=== PATIENT | female | born 1980 | race African-American/Black ===

== ENCOUNTER 2017-07-03 09:56 | Emergency (ER) | payer OTHER, SELFPAY ==
[2017-07-03 10:38] LABS: #Lymphocytes 1.1 thou/uL (1.20-3.40); #Monocytes 0.2 thou/uL (0.11-0.59); #Neutrophils 3.7 thou/uL (1.40-6.50); %Basophils 0.8 % (0.0-1.0); %Eosinophils 0.2 % (0.0-10.0); %Lymphocytes 21.1 % (21.0-51.0); %Monocytes 4.2 % (0.0-10.0); %Neutrophils 73.7 % (42.0-75.0); Hemoglobin 12.4 g/dL (12.0-16.0); Mean Corpuscular HGB CONC 32.4 g/dL (32.0-36.0); Mean Corpuscular Hemoglobin 28.8 pg (27.0-31.0); Mean Corpuscular Volume 88.9 fl (81.0-99.0); Mean Platelet Volume 7.4 fL (7.4-10.4); Platelet Count 369 thou/uL (130-400); RBC Distribution Width 12.3 % (11.5-14.5)
[2017-07-03 10:58] LABS: ALT (SGPT) 10 U/L (8-55); AST (SGOT) 15 U/L (5-34); Albumin 4.3 g/dL (3.5-5.0); Alkaline Phosphatase 84 U/L (40-150); Anion Gap 15 mmol/L (10-20); BUN (Urea Nitrogen) 10 mg/dL (7.0-18.7); Bilirubin, Total 0.6 mg/dL (0.2-1.2); Calc. Creatinine Clearance 0 mL/min (70-130); Calcium 10.3 mg/dL (7.8-10.44); Carbon Dioxide 22 mmol/L (22-29); Chloride 101 mmol/L (98-107); Estimated GFR-MDRD 78; Globulin 4.1 g/dL (2.4-3.5); Glucose 113 mg/dL (70-105); Lipase 9 U/L (8-78); Potassium 3.7 mmol/L (3.5-5.1); Protein, Total 8.4 g/dL (6.0-8.3); Sodium 134 mmol/L (136-145)
[2017-07-03] MEDS ORDERED: Ondansetron ODT 4 MG TAB ONE (13:22)
[2017-07-03] MEDS ORDERED: Promethazine HCl 25 MG/ML VIAL ONE (15:18)
[2017-07-03 15:25] LABS: Bilirubin Negative (Negative); Blood, Urine Negative (Negative); Clarity CLEAR (Clear); Glucose, Urine (Dipstick) Negative (Negative); Leukocyte Small (Negative); Nitrite Negative (Negative); Protein, Urine (Dipstick) 100 mg/dL (Neg-Trace); Specific Gravity, Urine 1.024 (1.002-1.036); Urobilinogen 0.2 mg/dL (0.2-1.0); pH, Urine 8.5 (5.0-9.0)
[2017-07-03 15:26] LABS: Pregnancy Test - Urine (BHCG) Negative (Negative); Pregu Control Background? CLEAR/WHITE (CLR/WHITE); Pregu Control Bar Appear? YES (CONTROL BAR); Specific Gravity 1.024 (1.002-1.036)
[2017-07-03 15:28] LABS: Bacteria/HPF None Seen HPF (None Seen); Hyaline Casts/LPF 0-3 HYALINE CAST LPF (0-3 Hyaline); Pathc Cast-AUWi Flag 0.14 (0-2.49)
[2017-07-03 15:38] LABS: Renal Epithelial None Seen HPF (0-3); Transitional Epithelial NONE SEEN HPF (0-3)
== END 2017-07-03 18:12 | disposition home or self-care (01) ==
LOC: ERS 09:56
DX: R11.2 Nausea with vomiting, unspecified (principal); F41.9 Anxiety disorder, unspecified; F32.9 Major depressive disorder, single episode, unspecified; F17.200 Nicotine dependence, unspecified, uncomplicated; Z79.899 Other long term (current) drug therapy
CPT/HCPCS: 36415; 80053; 81003; 81015; 81025; 83605; 83690; 85025; 87086; 96361; 96365; J2550; Q0162

== ENCOUNTER 2018-05-31 11:30 | Day surgery (SDC) | payer OTHER, SELFPAY ==
[2018-05-31 12:26] VITALS: BMI 29.7
[2018-05-31 12:42] VITALS: BP 100/58; TEMP 98.2
--- NOTE | 2018-05-31 13:05 | PDOC.LDHP ---
Labor and Delivery H&P Chief complaint: loss of fluid HPI: Ms. Rodarte presents for LOF she states that after her PNC visit on thursday she experienced a wet sensation down her leg, she called clinic and they were closed. Over the weekend she experienced intermittent contractions and one other episode of leaking fluid. She reports that she was told she was measuring small for dates on thursday with her fundus at 33cm. She called in to clinic today and was told to come to the hospital to be evaluated. She reports feeling baby move and is taking her vitamins. She denies vaginal bleeding, dysuria, consistent ctx, major LOF, abdominal pain, headache, or SOB. 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), tobacco abuse, hidranitis suppurtiva Current medications: pre-chantelle vitamins Previous surgical history: other (skin graft) Allergies/Adverse Reactions: Allergies Allergy/AdvReac Type Severity Reaction Status Date / Time sulfamethoxazole Allergy Hives Verified 05/31/18 12:24 [From Bactrim] trimethoprim [From Bactrim] Allergy Hives Verified 05/31/18 12:24 Social history: none (reported tobacco use earlier in ) - Physical Exam Vital signs reviewed and normal: yes General: NAD, resting Heart: RRR Lungs: CTAB Abdomen: NTTP Extremeties: no edema FHT: variability present (baseline 140, accels, no decels) - OB Labs Blood type: O RH: positive Antibody Screen: negative HIV: negative RPR: negative HEPSAg: negative 1 hour GCT: negative GBS: unknown Urine drug screen: not done Rubella: immune Additional Labs: pap w/ cotest neg, GC neg - Assessment R/O PROM - Plan -: - sterile spec negative for pooling, post tussive fluid. moderate amount of milky white fluid present, non foul smelling - PO hydration for mild uterine irritability - BPP 8/8, TOMMY>12, negative amnisure - growth c/w dates - DC home after 4-6 monitoring of FHTs, if concerning consider admit for induction of labor - labor precautions, US scheduled for 06/03/18 Addendum - Attending - Attending Attestation Date/Time: 06/01/18 6340 I personally evaluated the patient and discussed the management with Dr. Moreno. I agree with the History, Examination, Assessment and Plan documented above with any addition or exceptions noted below. Very subtle late on initial NST, which was reactive. No decels despite prolonged monitoring, which revealed a reactive strip. BPP 8/8 and 41% on growth. D/c home with strict return precautions. She has follow up tomorrow and may have APT later this week. Likely induction @ 39w.
[2018-05-31 13:51] LABS: Amnisure Test No Membranes Rupture (No Rupture)
[2018-05-31 13:52] LABS: Amnisure Internal Control QC ACCEPTABLE (ACCEPTABLE)
--- NOTE | 2018-05-31 15:34 | ULT ---
ULTRASOUND BIOPHYSICAL PROFILE: HISTORY: 38-year-old female in third trimester of with heart decelerations. FINDINGS: breathin tone: 2 movement: 2 Amniotic fluid volume: 2 IMPRESSION: Normal biophysical profile score of 8/8, excluding the non-stress test. jn [] POS: [facility]
--- NOTE | 2018-05-31 15:39 | ULT ---
ULTRASOUND OBSTETRICAL COMPLETE: DATE: 05/31/18 HISTORY: 38-year-old female in third trimester of with heart decelerations. Evaluate mini wt. FINDINGS: number: Clarke. lie: Cephalic. Maternal cervix: Obscured. Placenta: Right-fundal. No placenta previa. Amniotic fluid volume: TOMMY 12.5 cm. heart rate: 144 bpm. The following anatomy is visualized, with no evidence of anomalies: Bladder, bilateral kidneys, three vessel cord, four chamber heart, stomach, and cord insertion. The rest of the anatomy is not well visualized due to third trimester of . biometry: Head circumference (HC): 33.0 cm 37w 4d Biparietal diameter (BPD): 9.0 cm 36w 3d Abdominal circumference (AC): 32.7 cm 36w 4d Femur length (FL): 7.5 cm 38w 2d Average ultrasound age (AUA): 37w 2d Estimated date of delivery (HENRIQUE): 06/19/2018. Last menstrual period (LMP): 09/08/2017. Gestational age by LMP: 37w 6d Estimated weight (EFW): 3124 g +/- 462 g (6 lb 14 oz +/- 16 oz) IMPRESSION: 1. Live third trimester intrauterine gestation. 2. Estimated gestational age of 37 weeks, 2 days. 3. Cephalic lie. TAMICA Bennett POS: [facility]
== END 2018-05-31 17:35 | disposition home or self-care (01) ==
LOC: L&D/OP 11:30
PROVIDERS: ATTEND Emergency Medicine
DX: O99.89 Other specified diseases and conditions complicating pregnancy, childbirth and the puerperium (principal); N89.8 Other specified noninflammatory disorders of vagina; Z3A.37 37 weeks gestation of pregnancy; Z88.2 Allergy status to sulfonamides
CPT/HCPCS: 76805; 76819; 84112; 99283

== ENCOUNTER 2018-06-08 22:00 | Inpatient (IN) | payer OTHER ==
[~2018-06-08 22:00] MED LIST: Bupivacaine/Epinephrine 0.25% 30 ML VIAL ONE
[2018-06-08 22:30] VITALS: BMI 29.6
[2018-06-08] MEDS ORDERED: Promethazine HCl 25 MG/ML VIAL IM PRN (23:08)
[2018-06-08] MEDS ORDERED: Ondansetron PF 4 MG/2 ML Vial IVP PRN (23:08)
[2018-06-08] MEDS ORDERED: Lidocaine 1% (PF) 30 ML VIAL SC PRN (23:12)
--- NOTE | 2018-06-08 23:14 | PDOC.FPROB ---
FMR OB H&P: HPI - History of Present Illness Chief Complaint: IOL History of Present Illness: This is a 38 yo F @ 39wks by 9.3wk US who presents for IOL. Patient has had a complicated by AMA, 1st trimester tobacco use, iron deficiency anemia, and GBS positive status. The patient endorses + FM and irregular CTX. Patient denies LOF, vag bleeding, headache, vision changes or LE edema. Patient desires epidural with labor. She has no issues or concerns at this time. Primary Care Physician: Sabrina Kaminski FMR OB H&P: Current - Care : 5 Para: [id number] Gestational age: 39 Due date: 06/15/2018 Dating Criteria: 9.3w US Total weight gain: 43lbs - OB Labs Blood type: O RH: positive Antibody Screen: negative HIV: negative RPR: negative HepBsAg: negative Rubella: immune Gonorrhea: negative Chlamydia: negative 1 hour gtt: 112 GBS: positive H&H: 8.5/24.2 Platelets: 276 - First Trimester Ultrasound First trimester: US date: 11/13/17 Fetus - Location: IUP - Cardiac Motion: YES - FHR: 175 - Anomalies: None Measurements - Secor Rump Length (mm): 2.7 Dating - Gestational Age 9w3d - HENRIQUE by LMP 06/04/18, HENRIQUE by US 06/15/17 - Anatomy Survey Anatomy survey: Date of US 01/29/18 2 21w2d EFW 410g BPD: 5.11cm HC 18.97cm AC 15.43cm FL 3.75cm No abnormalities placenta location - posterior position: cephalic normal 3 vessel cord normal TOMMY FHR: 137bpm FMR OB H&P: History - Past Medical History PMH: Mitral regurgitation, iron deficiency anemia - OB History OB History: 09/10/15 - 39wks viable F, , epidural 03/20/12 - 39 wks viable F, , epidural 07/21/06 - 40 wks viable M, 12/19/96 - 40 wks viable M, - Child at aged 19 by suicide - second child has CP - very traumatic experience. Delivery at [facility]. Patient feels she was managed poorly. 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 Repeat in 3-5 years Menarche 12 years old, duration 7 days, regular frequency - Surgical History Sx History: Skin graft procedure after "spider bite" 2017 - Social History Social History: 1T tobacco use, smoked 5 cig a day, no longer using tobacco denies drug or alcohol use - Family History Family History: 2nd child w/ CP FMR OB H&P: Medications - Current Home Medications: Medication Instructions Recorded Confirmed Type Iron 18 mg PO DAILY 05/31/18 06/08/18 History Vit 108/Iron/Folic AC 1 tablet PO DAILY 05/31/18 06/08/18 History [ One Tablet] Allergies/Adverse Reactions: Allergies Allergy/AdvReac Type Severity Reaction Status Date / Time sulfamethoxazole Allergy Hives Verified 06/08/18 22:24 [From Bactrim] trimethoprim [From Bactrim] Allergy Hives Verified 06/08/18 22:24 FMR OB H&P: ROS - Review of Systems General: denies: fever/chills, weight/appetite/sleep changes, night sweats, fatigue Eyes: denies: vision changes, double vision ENT: denies: nasal congestion, rhinorrhea, sinus pain/pressure, sore throat Cardiovascular: denies: chest pain, palpitation, edema Respiratory: denies: cough, congestion, shortness of breath Gastrointestinal: denies: abdominal pain, nausea, vomiting, diarrhea Genitourinary (Female): denies: dysuria Musculoskeletal: denies: swelling Integumentary: denies: itching, rash FMR OB H&P: Vital Signs - Maternal Vital signs: Vital Signs - First Documented Temp Pulse Resp BP 97.7 F 78 16 97/54 L 06/08/18 22:24 06/08/18 22:24 06/08/18 22:24 06/08/18 22:24 - Heart Tones Baseline: 130 Variability: moderate Deceleration: absent Category: category 1 [place] contractions every: none FMR OB H&P: Physical Exam - Physical Exam General: NAD, awake, alert and oriented HEENT: normocephalic and atraumatic, PERRLA, EOMI, MMM, grossly normal vision, grossly normal hearing, good dention Neck: supple, FROM, trachea midline Chest: non-tender to palpation Breast: symmetric, non-tender Heart: RRR, normal S1/S2, no murmurs/rubs/gallops, pulses present General: CTAB, no respiratory distress, good air movement, no wheezing, no retractions Abdomen: soft, gravid, non-tender, bowel sound present Musculoskeletal: normal gait and station, pulses present, FROM in all four extremities Neurological: no focal deficit Skin: no rash, good tugor, capillary refill <2 seconds Psychiatric: intact recent and remote memory - Pelvic Exam Vulva: normal hair distribution, no masses, no lesions, no discharge SVE: /-3 Weinberg score: 3 Membranes: intact Presentation: cephalic FMR OB H&P: A/P - Problem List (1) Supervision of normal IUP (intrauterine ) in multigravida Current Visit: Yes Status: Acute Code(s): Z34.80 - ENCOUNTER FOR SUPRVSN OF NORMAL , UNSP TRIMESTER (2) Advanced maternal age (AMA) in Current Visit: Yes Status: Acute Code(s): GMS8680 - (3) Iron deficiency Current Visit: Yes Status: Acute Code(s): E61.1 - IRON DEFICIENCY (4) LGSIL (low grade squamous intraepithelial dysplasia) Current Visit: Yes Status: Acute Code(s): ALI3458 - Disposition: This is a 38 yo @ 39wks presenting for IOL. IUP - Cervical check 3 @ 2330 - Cook's Balloon placed at 2345, will recheck in 1 hour and start pitocin if patient will tolerate - Will continue to monitor FHR and maternal VS - patient desires epidural - Will give IVF AMA - aware, no other issues with GBS + - Will begin Penicillin G Iron deficiency anemia - continue iron, CBC will be monitored Hidradenitis suppurativa - aware, no current flares Hx of LSIL - aware, plan is to repeat in 3-5 years Hx of child w/ CP - aware, will make sure to keep patient informed of all decision and involved throughout the process Hx of tobacco use - 1T use, not currently smoking Addendum - Attending - Attending Attestation Date/Time: 06/08/18 4101 I personally evaluated the patient and discussed the management with Dr. Mederos I agree with the History, Examination, Assessment and Plan documented above with any addition or exceptions noted below. 38 yo female at 39.0 wks by 9.3 wk sono here for elective IOL. R/B/A discussed with patient. Questions answered. Consents signed. Induction options discussed. Will proceed with Cook's Balloon. complicated by AMA, child with CP, GBS pos, Iron deficiency anemia, excessive maternal wt gain, 1T tobacco use, hidradenitis -- no flares VS reviewed. FHT cat 1 tracing. Intact. Cephalic. 7lbs. 2 cm. Balloon placed without complications. Continue to closely monitor. Repeat exam as needed or in 4 hours. Darcy
[2018-06-08] MEDS ORDERED: Penicillin G Potassium 5 MILL.UNITS in Sodium Chloride 0.9% 100 ML IVPB SCH (23:15)
[2018-06-08] MEDS ORDERED: Penicillin G Potassium 5 MILL.UNITS VIAL ONE (23:24)
[2018-06-08 23:26] LABS: Hemoglobin 10.1 g/dL (12.0-16.0); Mean Corpuscular HGB CONC 33.2 g/dL (32.0-36.0); Mean Corpuscular Hemoglobin 28.1 pg (27.0-31.0); Mean Corpuscular Volume 84.6 fL (78.0-98.0); Mean Platelet Volume 7.6 fL (7.4-10.4); Platelet Count 294 thou/uL (130-400); RBC Distribution Width 12.3 % (11.5-14.5); Red Blood Cell (RBC) Count 3.59 mill/uL (4.20-5.40); White Blood Cell (WBC) Count 9.5 thou/uL (4.8-10.8)
[2018-06-08] MEDS: Lactated Ringer's 1,000 ML IV SCH (23:42)
[2018-06-09 00:04] LABS: HBSAg Index 0.42 S/CO (0-0.99); Hep B Surf Ag Non-Reactive S/CO (NonReactive); Syphilis Antibody Nonreactive (Nonreactive); Syphilis Antibody Index 0.04 S/CO (<1.00 Non-Reactive)
[2018-06-09] MEDS ORDERED: Fentanyl 4 mcg/Bup 0.1% Cadd 100 ML ONE ×3 (01:09→16:16)
--- NOTE | 2018-06-09 01:36 | PDOC.LDPN ---
Labor & Delivery Progress Note - Subjective Subjective: comfortable, painful contractions, no concerns - Objective Vital signs reviewed and normal: yes General: NAD, resting, breathing through contractions Uterine fundus: non tender Dilation: 2 Effacement: 50% Station: -3 FHT: category 1 [place] contractions every: every 1-2 min Resuscitative measures: maternal IV fluids - Assessment (1) Supervision of normal IUP (intrauterine ) in multigravida Code(s): Z34.80 - ENCOUNTER FOR SUPRVSN OF NORMAL , UNSP TRIMESTER Current Visit: Yes Status: Acute (2) Advanced maternal age (AMA) in Code(s): HIA6194 - Current Visit: Yes Status: Acute (3) Iron deficiency Code(s): E61.1 - IRON DEFICIENCY Current Visit: Yes Status: Acute (4) LGSIL (low grade squamous intraepithelial dysplasia) Code(s): [id number] - Current Visit: Yes Status: Acute Plan: continue plan of care -: This is a 38 yo @ 39wks presenting for IOL. IUP - Cervical check @ 2330, balloon checked at [address]; Will recheck in 4 hours - Cook's Balloon placed at 2345 - Patient CTX every 1-2 min, will hold off on pit at this time - Epidural being placed at this time (0140) - Will continue to monitor FHR and maternal VS - Continue IVF AMA - aware, no other issues with GBS + - Pen G given X 1 Iron deficiency anemia - continue iron, CBC will be monitored Hidradenitis suppurativa - aware, no current flares Hx of LSIL - aware, plan is to repeat in 3-5 years Hx of child w/ CP - aware, will make sure to keep patient informed of all decision and involved throughout the process Hx of tobacco use - 1T use, not currently smoking Addendum - Attending - Attending Attestation Date/Time: 06/09/18 3263 I personally evaluated the patient and discussed the management with Dr. Mederos I agree with the History, Examination, Assessment and Plan documented above with any addition or exceptions noted below. 38 yo female at 39.1 wks by 9.3 wk sono here for elective IOL. complicated by AMA, child with CP, GBS pos, Iron deficiency anemia, excessive maternal wt gain, 1T tobacco use, hidradenitis -- no flares VS reviewed. FHT cat 1 tracing. Intact. Cephalic. 7lbs. 2 cm. [address]oon still in place. Ctx q 5 mins Continue to closely monitor. Repeat exam as needed or in 4 hours. Darcy
[2018-06-09] MEDS ORDERED: Naloxone HCl 0.4 mg/ml Vial IVP PRN ×4 (01:49→20:57)
[2018-06-09] MEDS ORDERED: Lactated Ringer's 500 ML IV PRN (01:49)
[2018-06-09] MEDS ORDERED: Eucerin (Mineral Oil/Petrolatum,White) 30 gm Jar TOP PRN (01:49)
[2018-06-09] MEDS ORDERED: ePHEDrine/0.9% NaCl/PF SYRINGE 50 mg/10 ml SLOW IVP PRN (01:49)
[2018-06-09] MEDS ORDERED: Ondansetron PF 4 MG/2 ML Vial IVP PRN ×2 (01:49→20:57)
[2018-06-09] MEDS ORDERED: Promethazine HCl 25 MG/ML VIAL IM PRN ×2 (01:49→20:57)
[2018-06-09] MEDS ORDERED: Communication Order-Pharmacy FS SCH ×2 (02:00→21:00)
[2018-06-09] MEDS ORDERED: Fentanyl 4 mcg/Bupivacaine 0.1% Cassette 100 ML EPIDURAL SCH (02:00)
[2018-06-09] MEDS: NS w/ Oxytocin 10 units 500 ML IV SCH (03:43)
[2018-06-09] MEDS: Penicillin G 2.5 MILL.units 2.5 MILL.UNITS in Premix Bag 1 BAG IVPB SCH ×5 (03:43→22:22)
--- NOTE | 2018-06-09 04:19 | PDOC.LDPN ---
Labor & Delivery Progress Note - Subjective Subjective: comfortable, no concerns - Objective Vital signs reviewed and normal: yes General: NAD, resting, breathing through contractions Uterine fundus: non tender Dilation: 4 Effacement: 50% Station: -2 FHT: category 1 [place] contractions every: every 5-6 min Other exam findings: FHR 130 Resuscitative measures: maternal IV fluids - Assessment (1) Supervision of normal IUP (intrauterine ) in multigravida Code(s): Z34.80 - ENCOUNTER FOR SUPRVSN OF NORMAL , UNSP TRIMESTER Current Visit: Yes Status: Acute (2) Advanced maternal age (AMA) in Code(s): [id number] - Current Visit: Yes Status: Acute (3) Iron deficiency Code(s): E61.1 - IRON DEFICIENCY Current Visit: Yes Status: Acute (4) LGSIL (low grade squamous intraepithelial dysplasia) Code(s): [id number] - Current Visit: Yes Status: Acute Plan: continue plan of care, pitocin for augmentation -: This is a 38 yo @ 39wks presenting for IOL. IUP - Cervical check /-2 @ 0345, balloon fell out - Patient CTX every 5-6min, will start pitocin (around 0400) - Epidural placed at 0140; patient comfortable in bed - Will continue to monitor FHR and maternal VS - FHR - mod variability, 130, no decels - Continue IVF - Continue current management AMA - aware, no other issues with GBS + - Pen G given X 1 Iron deficiency anemia - continue iron, CBC will be monitored Hidradenitis suppurativa - aware, no current flares Hx of LSIL - aware, plan is to repeat in 3-5 years Hx of child w/ CP - aware, will make sure to keep patient informed of all decision and involved throughout the process Hx of tobacco use - 1T use, not currently smoking Addendum - Attending - Attending Attestation Date/Time: 06/09/18 8351 I personally evaluated the patient and discussed the management with Dr. Mederos I agree with the History, Examination, Assessment and Plan documented above with any addition or exceptions noted below. 38 yo female at 39.1 wks by 9.3 wk sono here for elective IOL. complicated by AMA, child with CP, GBS pos, Iron deficiency anemia, excessive maternal wt gain, 1T tobacco use, hidradenitis -- no flares VS reviewed. FHT cat 1 tracing. Cat 2 during sleep cycle. Intact. Cephalic. 7lbs. Now 4 cm. Balloon out at 0345. Ctx q 3 to 5 mins Continue to closely monitor. Discussed augmentation options. Would like to start pitocin. Darcy
[2018-06-09] MEDS: diphenhydrAMINE 50 MG/ML VIAL IVP PRN ×2 (05:01→09:03)
--- NOTE | 2018-06-09 06:59 | PDOC.LDPN ---
Labor & Delivery Progress Note - Subjective Subjective: comfortable - Objective Vital signs reviewed and normal: yes General: NAD, resting Uterine fundus: non tender Dilation: 5 Effacement: 50% Station: -2 FHT: category 2, acceleration absent, variability present [place] contractions every: 4-5 - Assessment (1) Advanced maternal age (AMA) in Code(s): [id number] - Current Visit: Yes Status: Acute (2) Iron deficiency Code(s): E61.1 - IRON DEFICIENCY Current Visit: Yes Status: Acute (3) LGSIL (low grade squamous intraepithelial dysplasia) Code(s): [id number] - Current Visit: Yes Status: Acute (4) Supervision of normal IUP (intrauterine ) in multigravida Code(s): Z34.80 - ENCOUNTER FOR SUPRVSN OF NORMAL , UNSP TRIMESTER Current Visit: Yes Status: Acute (5) Tobacco abuse Code(s): Z72.0 - TOBACCO USE Current Visit: No Status: Chronic -: This is a 38 yo @ 39.1wks presenting for elective IOL. IUP - Cervical check /-2 @ 0645, s/p balloon - Patient CTX every 4-5, on 2 of , will titrate up as tolerated - Epidural placed at 0140; patient comfortable in bed - Cat 2 strip, absent accels, good variability, no decels - will follow for now, consider AROM later in the morning AMA GBS + - Pen G x2 - first dose at 2315 on 06/08 Iron deficiency anemia -hgb 10.1 on admission Hidradenitis suppurativa - aware, no current flares Hx of LSIL - NILM, neg HPV this preg, repeat 3-5 years Hx of child w/ CP - aware, will make sure to keep patient informed of all decision and involved throughout the process Hx of tobacco use - 1T use, not currently smoking
[2018-06-09] MEDS: Lactated Ringer's 1,000 ML IV SCH ×2 (07:47→22:25)
--- NOTE | 2018-06-09 11:58 | PDOC.LDPN ---
Labor & Delivery Progress Note - Subjective Subjective: comfortable - Objective Vital signs reviewed and normal: yes General: NAD Uterine fundus: non tender Dilation: 5 Effacement: 50% Station: -1 FHT: category 2 (120s/minimal-mod/no accels/no decels) [place] contractions every: q3-4min -: This is a 38 yo @ 39.1wks presenting for elective IOL. sIUP, term - s/p balloon dilation - Patient with Cat II strip: 120/minimal-moderate/no accels/no decels-even with conservative measures: maternal repositioning, IVF bolus, juice PO, D5LR - Pit at 2, CTX q3-4min - Epidural in place - SVE: /-1 - After record review and conversation w/ patient it was decided that with no cervical change and Cat II strip that we would allow patient to rest, eat and spontaneously labor on her own. Recheck around 1600 and can considering restarting pit unless any new acute changes AMA -MD aware GBS + - Pen G x2 - first dose at 2315 on 06/08 Iron deficiency anemia -hgb 10.1 on admission Hidradenitis suppurativa - aware, no current flares Hx of LSIL - NILM, neg HPV this preg, repeat 3-5 years Hx of child w/ CP - aware, will make sure to keep patient informed of all decision and involved throughout the process Hx of tobacco use - 1T use, not currently smoking Addendum - Attending - Attending Attestation Date/Time: 06/10/18 1416 I personally evaluated the patient and discussed the management with Dr. Daugherty on 06/09/18. I agree with the History, Examination, Assessment and Plan documented above with any addition or exceptions noted below. Category 2 FHT's with minimal oxytocin. Pt. has been NPO for almost 24 hours. No medical urgency to deliver. Will hold Oxytocin for now, allow pt. to eat lunch and reevaluate in 4-6 hours for FHT's and dilation to determine active management further.
--- NOTE | 2018-06-09 16:22 | PDOC.LDPN ---
Labor & Delivery Progress Note - Subjective Subjective: comfortable, no concerns - Objective Vital signs reviewed and normal: yes General: NAD, resting Uterine fundus: non tender SVE: 6/60/0 Dilation: 60 Station: 0 FHT: category 1 [place] contractions every: uterine variability AROM: clear fluid - Assessment (1) Encounter for induction of labor Code(s): Z34.90 - ENCNTR FOR SUPRVSN OF NORMAL , UNSP, UNSP TRIMESTER Current Visit: Yes Status: Acute (2) Advanced maternal age (AMA) in Code(s): [id number] - Current Visit: Yes Status: Acute (3) Positive GBS test Code(s): B95.1 - STREPTOCOCCUS, GROUP B, CAUSING DISEASES CLASSD ELSWHR Current Visit: Yes Status: Acute Plan: continue plan of care -: 38 yo @ 39.1wks here for elective IOL. sIUP, term induction of labor - s/p balloon dilation and period of pit augmentation now s/p labor rest. - Epidural in place - SVE: 60/60/0 - patient s/p period of 6 hour rest off pitocin. She has made cervical change, AROM now with clear fluid and accels with scalp stim. -cont expectant mgmt AMA -MD aware GBS + - adequate ppx Iron deficiency anemia -hgb 10.1 on admission Hx of LSIL - NILM, neg HPV this preg, repeat 3-5 years Hx of child w/ CP - aware, will make sure to keep patient informed of all decision and involved throughout the process Hx of tobacco use - 1T use, not currently smoking
--- NOTE | 2018-06-09 16:24 | PDOC.EVN ---
Event Note - Event Note Event Note: Ms. Rodarte is feeling well. She is grateful for the opportunity to rest and eat earlier. Exam now shows normal maternal vitals and Cat I FHT tracing. Cervical exam is 6/60/0. This is a change from earlier today when she was 5/50/- 2. AROM reveals clear fluid. FHT accel noted with scalp stimulation. We will continue her current care with continuous FHT and epidural. In light of her change while off pitocin; her prior Cat II tracing on pitocin; and now AROM status, I hopeful she may progress without pitocin augmentation.
--- NOTE | 2018-06-09 20:24 | PDOC.LDPN ---
Addendum entered and electronically signed by Amy Mederos MD 06/09/18 20:43 : Prolonged Cat 2 strip throughout the day with intermittent cat 1 strip for short periods of time. Occasional variable decels - not persistent and protracted labor. Not able to tolerate pitocin or other augmentation. At most recent check, unable to stimulate fetus with FSE or digital stimulation. Maternal resuscitations measures started including O2, IVFs and position change which were ineffective. Due to RF related to AMA and previous hx of antepartum complications risk and benefits discussed with patient about expectant management vs operative delivery. All questions asked and answered. Patient agreed to proceed to operative delivery. Original Note: Labor & Delivery Progress Note - Subjective Subjective: comfortable - Objective Vital signs reviewed and normal: yes General: NAD, resting, breathing through contractions Dilation: 6 Effacement: 75% Station: 0 FHT: category 1, acceleration absent [place] contractions every: every 5-6 min AROM: clear fluid IUPC placed: yes FSE placed: yes Resuscitative measures: maternal oxygen, maternal IV fluids, maternal position change - Assessment (1) Supervision of normal IUP (intrauterine ) in multigravida Code(s): Z34.80 - ENCOUNTER FOR SUPRVSN OF NORMAL , UNSP TRIMESTER Current Visit: Yes Status: Acute (2) Advanced maternal age (AMA) in Code(s): SOW3615 - Current Visit: Yes Status: Acute (3) Iron deficiency Code(s): E61.1 - IRON DEFICIENCY Current Visit: Yes Status: Acute (4) LGSIL (low grade squamous intraepithelial dysplasia) Code(s): SOL0040 - Current Visit: Yes Status: Acute Plan: continue plan of care, pitocin for augmentation -: 38 yo @ 39.1wks here for elective IOL. sIUP, term induction of labor - s/p balloon dilation and period of pit augmentation now s/p labor rest. - Epidural in place - SVE: - patient s/p period of 6 hour rest off pitocin. AROM with clear fluid. Patient continues to make change. - IUPC and FSE placed @ 1999 - FHT: mod variability, no decels, FHR 120s. Will give fluid bolus and start D5LR, will continue to monitor closely. Patient started on O2. Will try different maternal positions to continue progression. -cont expectant mgmt AMA -MD aware GBS + - adequate ppx Iron deficiency anemia -hgb 10.1 on admission Hx of LSIL - NILM, neg HPV this preg, repeat 3-5 years Hx of child w/ CP - aware, will make sure to keep patient informed of all decision and involved throughout the process Hx of tobacco use - 1T use, not currently smoking Addendum - Attending - Attending Attestation Date/Time: 06/09/182024 I personally evaluated the patient and discussed the management with Dr. Mederos I agree with the History, Examination, Assessment and Plan documented above with any addition or exceptions noted below. 38 yo female at 39.1 wks by 9.3 wk sono here for elective IOL. complicated by AMA, child with CP, GBS pos, Iron deficiency anemia, excessive maternal wt gain, 1T tobacco use, hidradenitis -- no flares VS reviewed. FHT persistent cat 2. Short periods of moderate variblity meeting 6 bpm only. No accels. Occasional varible decel. AROM 1600. Cephalic. 7lbs. 6 cm. FSE and IUPC in place. Inadequate contractions. Unable to tolerate pitocin. Gave patient 20 minutes with resuscitative measures but fetus not responding. R/ B/A discussed. Questions answered. Consents reviewed. Patient agreed to proceed with delivery. Patient approved for RRS and will proceed. Consulted Laborist for case. Agreed with plan. Darcy
[2018-06-09] MEDS ORDERED: Lidocaine 2% 10 ML INJ ONE (20:54)
[2018-06-09] MEDS ORDERED: HYDROmorphone 2 MG/ML VIAL SLOW IVP PRN (20:56)
[2018-06-09] MEDS ORDERED: Meperidine HCl/PF 25 MG/ML VIAL SLOW IVP PRN (20:56)
[2018-06-09] MEDS ORDERED: L&D-Morphine 4 MG/ML VIAL SLOW IVP PRN (20:56)
[2018-06-09] MEDS ORDERED: Ondansetron HCl/PF 4 MG/2 ML Vial IVP PRN (20:56)
[2018-06-09] MEDS ORDERED: Ketorolac Tromethamine 30 MG/ML VIAL IVP PRN (20:57)
[2018-06-09] MEDS ORDERED: Promethazine HCl 25 MG SUPP PR PRN (20:57)
[2018-06-09] MEDS ORDERED: Hydrocerin (Eucerin) Cream 120 gm Jar TOP PRN (20:57)
[2018-06-09] MEDS ORDERED: diphenhydrAMINE 50 MG/ML VIAL IVP PRN (20:57)
[2018-06-09] MEDS ORDERED: Naloxone HCl 0.4 mg/ml Vial IV PRN (20:57)
[2018-06-09] MEDS ORDERED: Bicitra 30 ML UDCUP PO SCH (21:00)
[2018-06-09] MEDS ORDERED: Azithromycin 500 MG in Sodium Chloride 0.9% 250 ML 250 ML IVPB SCH (21:00)
[2018-06-09] MEDS ORDERED: CEFAZOLIN 2 GM in Premix Bag 1 BAG IVPB SCH (21:00)
[2018-06-09] MEDS ORDERED: Ketorolac Tromethamine 30 MG/ML VIAL IVP SCH (21:00)
[2018-06-09] MEDS ORDERED: Bisacodyl 10 MG SUPP PR PRN (21:27)
[2018-06-09] MEDS ORDERED: Milk Of Magnesia 30 ML UDCUP PO PRN (21:27)
[2018-06-09] MEDS ORDERED: Benzocaine/Menthol 20-0.5% 60 ML CAN TOP PRN (21:27)
[2018-06-09] MEDS: NS / Oxytocin 40 units/1000ml 1,000 ML IV PRN ×2 (21:30→22:46)
[2018-06-09] MEDS ORDERED: Misoprostol 200 MCG TAB RC SCH (21:45)
--- NOTE | 2018-06-09 21:54 | PDOC.OPDEL ---
OB Operative/Delivery Note Delivery Dr/Surgeon: Yamilex Knutson Bray Pre-Delivery Diagnosis: active labor Procedure/Post Delivery Dx: spontaneous vaginal delivery - Additional Findings/Plan Placenta delivered: spontaneous Repaired Obstetrical Laceration: none Estimated blood loss: 176 Compilations/Other Findings: Delivering Physician: Sergio Knutson Attending: Dr. Brower Procedure: Spontaneous Vaginal Delivery Anesthesia: epidural QBL:176ml Pre-op Diagnosis: 1. Term intrauterine (39.1 wks) 2. Hx child with cerebral palsy 3. AMA 4. GBS+ 5. Excessive Maternal Weight Gain (43 lbs) 6. Iron Deficiency Anemia 7. Hidrenditis 8. Tobacco use 1T Post-op Diagnosis: 1. Term intrauterine , delivered 2-8. same as above Indications: A 38y/o female admitted for elective induction at 39.0 wks. Delivery Note: This is 38yo F now P5004 @ 39.1 wks who delivered a viable F on 06/09 at 2126. Antepartum course complicated by Cat II tracing due to minimal variability with intermittent varibles. However, a vigorous F was delivered over an intact perineum in the OA position. Anterior Shoulder and then remainder of the body delivered. No nuchal cord. The head was held down and mouth and nares were bulb suctioned. Cord clamped after delayed cord clamping and cut and cord blood collected. Placenta delivered intact [place] presentation with a 3 vessel cord noted. Fundal massage was performed and the fundus was firm. The cervix and vagina were inspected and found to be free of lacerations. went to nursery in good condition for routine care. Apgars were 8/9 at 1 & 5 minutes, respectively. Patient tolerated delivery well and went to after routine recovery/care. Attending Note: I was present and participated in the above documented procedure. 38 yo female at 39.1 wks by 9.3 wk sono was admitted for elective IOL. Cooks balloon placed for cervical ripening. Patient progressed without complications. At 0345 balloon fell out. Augmentation was discussed with patient and requested pitocin to be started. Reassuring status. Cat 1 tracing. +FM. At some point on the morning of 06/09/18 fetus was not tolerating pitocin well. This was stopped and resuscitative measure provided. Patient given a break and allowed to eat. Cat 1 tracing return. However again Cat 2 tracing returned with minimal varibility (baseline normal, rare and occasional varibles). Acels could be manually stimulated. Cat 1 tracings would return throughout the day and therefore expectant management was continued. Maternal resuscitative measures continue throughout the day. AROM with clear fluid at 1600. Patient was evaluated by myself. I discussed the labor progress with the patient and my concerns. FSE and IUPC along with manual stimulation was attempted without much interaction. Contraction pattern inadequate with weak contractions occurring every 10 to 12 minutes. Patient was 6 cm at this time. Not able to provide pit augmentation due to tracing. Patient agreed to proceed with delivery. Case discussed with laborist who agreed with decision. However, while anesthesia was in the patient's room contraction frequency increased to very 2 minutes for a brief time. FHT very reassuring and beautiful cat 1 tracing with frequent acels. +FM noted on exam and auscultated by doppler. Patient re-examed and note to be 9 cm. With one push, patient was able to push past cervix. Room quickly set up for vaginal delivery. NICU present at delivery. Viable female delivered OA position at 2126. Good cry at delivery. APGARs 8/9. No lacerations. Mother and did well. Routine care. GBS was adequately treated. Darcy Post delivery plan: routine recovery
[2018-06-09] MEDS: Dextrose 5%-Lactated Ringers 1,000 ML IV SCH (22:23)
[2018-06-10] MEDS: Ibuprofen 800 MG TAB PO SCH ×3 (01:18→16:35)
[2018-06-10] MEDS: Acetaminophen 325 MG TAB PO PRN ×3 (01:57→17:58)
[2018-06-10] MEDS: Penicillin G 2.5 MILL.units 2.5 MILL.UNITS in Premix Bag 1 BAG IVPB SCH ×5 (04:11→19:55)
[2018-06-10] MEDS: Lactated Ringer's 1,000 ML IV SCH ×3 (04:12→14:31)
[2018-06-10] MEDS: NS w/ Oxytocin 10 units 500 ML IV SCH (04:12)
[2018-06-10] MEDS: Dextrose 5%-Lactated Ringers 1,000 ML IV SCH ×2 (05:59→11:22)
--- NOTE | 2018-06-10 07:13 | PDOC.PP ---
Post Progress Note Post Day #: 1 Subjective: This morning mom states she is feeling well. She states her bleeding is less than a regular menses. Mild cramping. Has been up to the restroom without difficulty. She has no questions or concerns today. PO intake tolerated: yes Flatus: yes Ambulation: yes Vital Signs (12 hours) Temp Pulse Resp BP 06/10/18 05:30 98.3 F 69 18 99/64 06/10/18 02:50 98.1 F 80 18 102/52 L 06/10/18 01:50 98.3 F 72 18 105/71 06/10/18 00:45 98.3 F 75 18 109/68 Weight Weight 80.739 kg - Physical Examination General: NAD Cardiovascular: no m/r/g, RRR Respiratory: clear to auscultation bilaterally, non-labored breathing Abdominal: + bowel sounds, lochia, no distention, appropriately TTP Fundus firm & at: 1cm below umbilicus Extremities: negative homans (B) Neurological: no gross focal deficits Psychiatric: A&Ox3, normal affect Result Diagrams: 06/10/18 05:47 Additional Labs: Post Labs Blood Type O POSITIVE 06/09/18 04:17 Hep Bs Antigen Non-Reactive S/CO (NonReactive) 06/08/18 23:18 (1) Advanced maternal age (AMA) in Code(s): [id number] - Status: Acute (2) Iron deficiency Code(s): E61.1 - IRON DEFICIENCY Status: Acute (3) LGSIL (low grade squamous intraepithelial dysplasia) Code(s): GJE0627 - Status: Acute (4) Supervision of normal IUP (intrauterine ) in multigravida Code(s): Z34.80 - ENCOUNTER FOR SUPRVSN OF NORMAL , UNSP TRIMESTER Status: Acute (5) Tobacco abuse Code(s): Z72.0 - TOBACCO USE Status: Chronic - Assessment/Plan # PP day 1 - AM hgb pending, asx - minimal bleeding - eating, stooling, urinating w/o difficulty - formula feeding # RRS - desires RRS, approved by [facility] Ethics committee per laundry housekeeper - will coordinate with laborist Addendum - Attending - Attending Attestation Date/Time: 06/10/18 9102 I personally evaluated the patient and discussed the management with Dr. Kaminski. I agree with the History, Examination, Assessment and Plan documented above with any addition or exceptions noted below. Pain controlled. Afeb. Lochia normal. Fundus firm. Since no C'sxn, not a candidate for RRS. Will arrange alternative as OP.
[2018-06-10 07:21] LABS: Hemoglobin 8.7 g/dL (12.0-16.0); Mean Corpuscular HGB CONC 33.5 g/dL (32.0-36.0); Mean Corpuscular Volume 86.5 fL (78.0-98.0); Mean Platelet Volume 7.6 fL (7.4-10.4); Platelet Count 244 thou/uL (130-400); RBC Distribution Width 12.3 % (11.5-14.5); White Blood Cell (WBC) Count 9.7 thou/uL (4.8-10.8)
[2018-06-10] MEDS: Ferrous Sulfate 325 MG TAB PO SCH ×2 (08:36→16:35)
[2018-06-10] MEDS: Docusate Calcium (SURFAK) 240 MG CAP PO SCH ×2 (08:36→22:04)
[2018-06-10] MEDS ORDERED: Adacel (T-DAP) 0.5 ML SYRINGE IM ONE (09:00)
[2018-06-10] MEDS ORDERED: Acetaminophen/Codeine 30-300mg Tablet PO SCH (12:00)
[2018-06-10] MEDS: Acetaminophen/Codeine 30-300mg Tablet PO PRN (22:03)
[2018-06-11] MEDS: Dextrose 5%-Lactated Ringers 1,000 ML IV SCH ×2 (01:44→06:41)
[2018-06-11] MEDS: Lactated Ringer's 1,000 ML IV SCH ×2 (01:46→08:48)
[2018-06-11] MEDS: Penicillin G 2.5 MILL.units 2.5 MILL.UNITS in Premix Bag 1 BAG IVPB SCH ×4 (01:46→11:19)
[2018-06-11] MEDS: Acetaminophen/Codeine 30-300mg Tablet PO PRN ×2 (04:50→12:54)
[2018-06-11] MEDS: NS w/ Oxytocin 10 units 500 ML IV SCH (05:26)
[2018-06-11] MEDS ORDERED: Ibuprofen 800 MG TAB PO SCH (06:00)
[2018-06-11] MEDS: Ibuprofen 800 MG TAB PO SCH (06:24)
--- NOTE | 2018-06-11 07:48 | PDOC.PP ---
Post Progress Note Post Day #: 2 Subjective: EAting, stooling, ambulating well. Patient is having some pain from cramping, made somewhat worse with walking but comes and goes. Afebrile overnight, minimal bleeding. States she feels ready to go home. PO intake tolerated: yes Flatus: yes Ambulation: yes Vital Signs (12 hours) Temp Pulse Resp BP Pulse Ox 06/11/18 04:40 97.5 F L 75 18 100/62 06/10/18 20:15 98.5 F 77 20 108/61 98 Weight Weight 80.739 kg - Physical Examination General: NAD Cardiovascular: no m/r/g, RRR Respiratory: clear to auscultation bilaterally, non-labored breathing Abdominal: + bowel sounds, lochia, no distention, appropriately TTP Fundus firm & at: 2 cm below umbilicus Extremities: negative homans (B) Neurological: no gross focal deficits Psychiatric: A&Ox3, normal affect Result Diagrams: 06/10/18 05:47 Additional Labs: Post Labs Blood Type O POSITIVE 06/09/18 04:17 Hep Bs Antigen Non-Reactive S/CO (NonReactive) 06/08/18 23:18 (1) Advanced maternal age (AMA) in Code(s): [id number] - Status: Acute (2) Iron deficiency Code(s): E61.1 - IRON DEFICIENCY Status: Acute (3) LGSIL (low grade squamous intraepithelial dysplasia) Code(s): [id number] - Status: Acute (4) Supervision of normal IUP (intrauterine ) in multigravida Code(s): Z34.80 - ENCOUNTER FOR SUPRVSN OF NORMAL , UNSP TRIMESTER Status: Acute (5) Tobacco abuse Code(s): Z72.0 - TOBACCO USE Status: Chronic - Assessment/Plan # PP day 2 - AM hgb 8.7, asx - minimal bleeding - eating, stooling, urinating w/o difficulty - formula feeding - will send home with ibuprofen/tyl #3 for pain # RRS - plan for post d/c Addendum - Attending - Attending Attestation Date/Time: 06/11/18 1123 I personally evaluated the patient and discussed the management with Dr. Kaminski. I agree with the History, Examination, Assessment and Plan documented above with any addition or exceptions noted below. Pain controlled. Lochia moderate. Afeb. Fundus firm. Stable for d/c home.
[2018-06-11 08:09] VITALS: BP 114/70; TEMP 97.8
[2018-06-11] MEDS: Ferrous Sulfate 325 MG TAB PO SCH (08:48)
[2018-06-11] MEDS: Docusate Calcium (SURFAK) 240 MG CAP PO SCH (08:49)
== END 2018-06-11 12:55 | disposition home or self-care (01) | DRG 807 ==
LOC: L&D 22:02 → 3SW 06-10 01:01
PROVIDERS: ADMIT Family Medicine; ATTEND Family Medicine
PROC: 0U7C7ZZ Dilation of Cervix, Via Natural or Artificial Opening (ICD-10-PCS; 2018-06-08)
PROC: 10E0XZZ Delivery of Products of Conception, External Approach (ICD-10-PCS; principal; 2018-06-09)
PROC: 10907ZC Drainage of Amniotic Fluid, Therapeutic from Products of Conception, Via Natural or Artificial Opening (ICD-10-PCS; 2018-06-09)
PROC: 10H07YZ Insertion of Other Device into Products of Conception, Via Natural or Artificial Opening (ICD-10-PCS; 2018-06-09)
DX: O99.824 Streptococcus B carrier state complicating childbirth (principal); Z37.0 Single live birth; O99.02 Anemia complicating childbirth; D50.9 Iron deficiency anemia, unspecified; O26.03 Excessive weight gain in pregnancy, third trimester; O76 Abnormality in fetal heart rate and rhythm complicating labor and delivery; Z88.2 Allergy status to sulfonamides; Z87.891 Personal history of nicotine dependence; Z3A.39 39 weeks gestation of pregnancy
CPT/HCPCS: 36415; 51702; 85027; 86780; 86850; 86900; 86901; 87340; 90471; 90732; C1726; G0009; J1200; J2001; J2540

== ENCOUNTER 2020-08-29 09:42 | Emergency (ER) | payer OTHER ==
[2020-08-29] MEDS ORDERED: Ondansetron PF 4 MG/2 ML Vial ONE (10:34)
[2020-08-29 10:52] LABS: #Eosinphils 0.1 thou/uL (0.0-0.7); #Lymphocytes 1.4 thou/uL (1.20-3.40); #Monocytes 0.3 thou/uL (0.11-0.59); #Neutrophils 6.7 thou/uL (1.40-6.50); %Basophils 0.3 % (0.0-1.0); %Eosinophils 1.1 % (0.0-10.0); %Lymphocytes 16.4 % (21.0-51.0); %Monocytes 3.8 % (0.0-10.0); %Neutrophils 78.4 % (42.0-75.0); Hemoglobin 12.6 g/dL (12.0-16.0); Mean Corpuscular HGB CONC 32.4 g/dL (32.0-36.0); Mean Corpuscular Hemoglobin 28.1 pg (27.0-31.0); Mean Corpuscular Volume 86.9 fL (78.0-98.0); Mean Platelet Volume 7.8 fL (7.4-10.4); Platelet Count 423 thou/uL (130-400); RBC Distribution Width 11.7 % (11.5-14.5); White Blood Cell (WBC) Count 8.6 thou/uL (4.8-10.8)
[2020-08-29 11:01] LABS: BHCG - Serum Negative (NEGATIVE); Pregs Control Background? CLEAR/WHITE (CLR/WHITE); Pregs Control Bar Appear? YES (CONTROL BAR)
[2020-08-29] MEDS ORDERED: Ondansetron ODT 4 MG TAB ONE (11:05)
[2020-08-29 11:08] LABS: Bilirubin Negative (Negative); Blood, Urine 1+ (Negative); Clarity Turbid (Clear); Glucose, Urine (Dipstick) Normal (Negative); Ketone, Urine 150 mg/dL (Negative); Leukocyte 500 Leu/uL (Negative); Nitrite 2+ (Negative); Protein, Urine (Dipstick) 30 mg/dL (Neg-Trace); Specific Gravity, Urine 1.026 (1.002-1.036); Urobilinogen Normal mg/dL (Less than 2); WBC/HPF Greater than 50 HPF (0-3); pH, Urine 6.5 (5.0-9.0)
[2020-08-29 11:09] LABS: Bacteria/HPF Rare-Few HPF (None Seen)
[2020-08-29 11:11] LABS: ALT (SGPT) 14 U/L (8-55); AST (SGOT) 13 U/L (5-34); Albumin 3.8 g/dL (3.5-5.0); Alkaline Phosphatase 108 U/L (40-110); Anion Gap 16 mmol/L (10-20); BUN (Urea Nitrogen) 6 mg/dL (7.0-18.7); Bilirubin, Total 0.4 mg/dL (0.2-1.2); Calc. Creatinine Clearance 0 mL/min (70-130); Calcium 9.7 mg/dL (7.8-10.44); Carbon Dioxide 22 mmol/L (22-29); Chloride 102 mmol/L (98-107); Globulin 4.5 g/dL (2.4-3.5); Glucose 118 mg/dL (70-105); Lipase 7 U/L (8-78); Potassium 3.9 mmol/L (3.5-5.1); Protein, Total 8.3 g/dL (6.0-8.3); Sodium 136 mmol/L (136-145)
[2020-08-29] MEDS ORDERED: Promethazine HCl 25 MG/ML VIAL ONE (13:44)
[2020-08-29] MEDS ORDERED: Morphine 4 MG/ML VIAL ONE (13:44)
[2020-08-29] MEDS ORDERED: Lidocaine 1% (PF) 30 ML VIAL ONE (13:45)
[2020-08-29] MEDS ORDERED: cefTRIAXone\\ROCEPHIN 1 GM VIAL ONE (13:45)
== END 2020-08-29 13:40 | disposition home or self-care (01) ==
LOC: ERS 09:42
DX: N39.0 Urinary tract infection, site not specified (principal); F17.210 Nicotine dependence, cigarettes, uncomplicated
CPT/HCPCS: 36415; 80053; 81003; 81015; 83690; 84703; 85025; 93005; 96372; 96374; J0696; J2001; J2270; J2405; J2550; Q0162

== ENCOUNTER 2020-09-18 20:00 | Emergency (ER) | payer OTHER ==
[2020-09-18 20:25] LABS: #Lymphocytes 0.8 thou/uL (1.20-3.40); #Monocytes 0.3 thou/uL (0.11-0.59); #Neutrophils 6.6 thou/uL (1.40-6.50); %Basophils 0.2 % (0.0-1.0); %Eosinophils 0.2 % (0.0-10.0); %Lymphocytes 10.5 % (21.0-51.0); %Neutrophils 85.1 % (42.0-75.0); Hemoglobin 11.5 g/dL (12.0-16.0); Mean Corpuscular HGB CONC 32.9 g/dL (32.0-36.0); Mean Corpuscular Hemoglobin 28.7 pg (27.0-31.0); Mean Corpuscular Volume 87.2 fL (78.0-98.0); Mean Platelet Volume 6.9 fL (7.4-10.4); Platelet Count 308 thou/uL (130-400); RBC Distribution Width 12.8 % (11.5-14.5); White Blood Cell (WBC) Count 7.8 thou/uL (4.8-10.8)
[2020-09-18 20:39] LABS: ALT (SGPT) 23 U/L (8-55); AST (SGOT) 25 U/L (5-34); Albumin 3.6 g/dL (3.5-5.0); Alkaline Phosphatase 73 U/L (40-110); Anion Gap 9 mmol/L (10-20); BUN (Urea Nitrogen) 13 mg/dL (7.0-18.7); Bilirubin, Total 0.3 mg/dL (0.2-1.2); Calc. Creatinine Clearance 0 mL/min (70-130); Calcium 8.5 mg/dL (7.8-10.44); Carbon Dioxide 22 mmol/L (22-29); Chloride 105 mmol/L (98-107); Globulin 3.5 g/dL (2.4-3.5); Glucose 169 mg/dL (70-105); Protein, Total 7.1 g/dL (6.0-8.3); Sodium 132 mmol/L (136-145)
[2020-09-18 22:30] LABS: Anion Gap 10 mmol/L (10-20); BUN (Urea Nitrogen) 11 mg/dL (7.0-18.7); Calc. Creatinine Clearance 0 mL/min (70-130); Calcium 8.2 mg/dL (7.8-10.44); Carbon Dioxide 18 mmol/L (22-29); Chloride 110 mmol/L (98-107); Glucose 93 mg/dL (70-105); Potassium 4.3 mmol/L (3.5-5.1); Sodium 134 mmol/L (136-145)
== END 2020-09-18 22:40 | disposition home or self-care (01) ==
LOC: ERS 20:00
DX: I47.1 Supraventricular tachycardia (principal); E86.0 Dehydration; F17.210 Nicotine dependence, cigarettes, uncomplicated
CPT/HCPCS: 36415; 80053; 83605; 84484; 85025; 93005